=== PATIENT | female | born 1990 | race African-American/Black ===

== ENCOUNTER 2016-09-15 10:37 | Emergency (ER) | payer MEDICAID ==
[~2016-09-15] VITALS: Ht 157.5 cm; Wt 61.2 kg
--- NOTE | 2016-09-15 10:55 | NUR ---
PT IS IN ROOM #2A. DR DAY EVALUATED THE PT.
--- NOTE | 2016-09-15 11:13 | NUR ---
I&D PROCEDURE WAS DONE BY DR DAY. PT TOLERATED TO PROCEDURE WITHOUT COMPLICATIONS. NO BLEEDING. PT WAS D/C TO [facility]. D/C INSTRUCTIONS GIVEN TO THE PT.
[2016-09-15 11:15] VITALS: BP 131/72
== END 2016-09-15 11:17 | disposition home or self-care (01) ==
LOC: ER 10:37
DX: L02.413 Cutaneous abscess of right upper limb (principal)
CPT/HCPCS: A4663

== ENCOUNTER 2016-09-16 06:55 | Emergency (ER) | payer MEDICAID ==
[~2016-09-16] VITALS: Ht 157.5 cm; Wt 56.7 kg
[2016-09-16] MEDS: KETOROLAC TROMETHAMINE 60 MG INJ IM ONE (07:14)
--- NOTE | 2016-09-16 07:19 | NUR ---
dressing on RT axilla changed per pt request. no s/s infection noted at the site of earlier I&D.
[2016-09-16] MEDS ORDERED: KETOROLAC TROMETHAMINE 60 MG INJ IM ONE (07:23)
--- NOTE | 2016-09-16 07:37 | NUR ---
Patient discharged to home in stable conditon. Written and verbal after care instructions given. Patient verbalizes understanding of instructions. Patient left with stable gait with family.
[2016-09-16 07:38] VITALS: BP 126/88
== END 2016-09-16 07:39 | disposition home or self-care (01) ==
LOC: ER 06:58
DX: Z48.01 Encounter for change or removal of surgical wound dressing (principal); L02.411 Cutaneous abscess of right axilla
CPT/HCPCS: A4663; J1885

== ENCOUNTER 2016-10-13 23:21 | Emergency (ER) | payer MEDICAID ==
[~2016-10-13] VITALS: Ht 157.5 cm; Wt 61.2 kg
--- NOTE | 2016-10-14 00:29 | NUR ---
Patient discharged to home in stable conditon. Written and verbal after care instructions given. Patient verbalizes understanding of instructions.
== END 2016-10-14 00:31 | disposition home or self-care (01) ==
LOC: ER 23:26
DX: S13.4XXA Sprain of ligaments of cervical spine, initial encounter (principal); R51 Headache; V89.2XXA Person injured in unspecified motor-vehicle accident, traffic, initial encounter; Y93.89 Activity, other specified; Y99.8 Other external cause status; Y92.89 Other specified places as the place of occurrence of the external cause
CPT/HCPCS: A4663

== ENCOUNTER 2016-12-29 00:16 | Emergency (ER) | payer BC, MEDICAID ==
[~2016-12-29] VITALS: Ht 157.5 cm; Wt 61.7 kg
[2016-12-29 00:42] LABS: *BILIRUBIN,URIN NEGATIVE (NEGATIVE); *BLOOD, URINE Trace-intact (NEGATIVE); *CLARITY,URINE CLOUDY (CLEAR); *COLOR,URINE YELLOW (YELLOW); *KETONES,URINE TRACE (NEGATIVE); *PROTEIN,URINE 1+ (NEGATIVE); LEUKOCYTE ESTERASE ,URINE 1+ (NEGATIVE); NITRITE, URINE NEGATIVE (NEGATIVE); UGLUCOSE NEGATIVE (NEGATIVE)
--- NOTE | 2016-12-29 00:44 | NUR ---
Pt is received alert, responsive came in c/o lower back pain and pain upon urination. Her care continue with MD at bedside.
[2016-12-29 00:45] LABS: *URINE HCG, QUAL NEGATIVE (NEGATIVE)
[2016-12-29] MEDS ORDERED: OXYCODONE/APAP 5-325 MG TABLET PO ONE (00:45)
[2016-12-29] MEDS ORDERED: CYCLOBENZAPRINE HCL 10 MG TABLET PO ONE (00:45)
[2016-12-29 00:49] LABS: BACTERIA,URINE FEW /HPF (NONE SEEN); SQUAMOUS EPITHELIAL CELL,UR MODERATE /HPF (NONE SEEN); WBC,URINE 50-80 /HPF (0-3)
--- NOTE | 2016-12-29 00:55 | NUR ---
Pt is resting in bed with Percocet 5mg -325mg po, Flexeril 10mg po given as ordered. Her care continue as awaits Labs results.
[2016-12-29] MEDS ORDERED: OXYCODONE/APAP 5-325 MG TABLET ONE (01:05)
[2016-12-29] MEDS ORDERED: CYCLOBENZAPRINE HCL 10 MG TABLET ONE (01:05)
[2016-12-29] MEDS ORDERED: NITROFURANTOIN/NITROFURAN MAC 100 MG CAPSULE PO ONE (01:30)
[2016-12-29 01:36] VITALS: BP 119/85
[2016-12-29] MEDS ORDERED: NITROFURANTOIN/NITROFURAN MAC 100 MG CAPSULE ONE (01:42)
--- NOTE | 2016-12-29 01:42 | NUR ---
Pt is been discharge to home after Macrobid 100mg po was given and discharge instructions with perscriptions is given for Macrobid 100mg po [id number], [place] 10mg-325mg po, Flexeril 10mg po and also to follow with PCP.
== END 2016-12-29 01:45 | disposition home or self-care (01) ==
LOC: ER 00:21
DX: N30.90 Cystitis, unspecified without hematuria (principal); M54.5 Low back pain
CPT/HCPCS: 84703; A4663

== ENCOUNTER 2017-05-20 00:04 | Emergency (ER) | payer BC, MEDICAID ==
[~2017-05-20] VITALS: Ht 157.5 cm; Wt 65.8 kg
[2017-05-20] MEDS ORDERED: predniSONE 50 MG TABLET PO ONE (01:45)
[2017-05-20] MEDS ORDERED: predniSONE 50 MG TABLET ONE (01:58)
--- NOTE | 2017-05-20 02:11 | NUR ---
Patient discharged to home in stable conditon. Written and verbal after care instructions given. Patient verbalizes understanding of instructions.
== END 2017-05-20 02:18 | disposition home or self-care (01) ==
LOC: ER 00:08
DX: J40 Bronchitis, not specified as acute or chronic (principal)
CPT/HCPCS: A4663; J7512

== ENCOUNTER 2017-06-16 12:46 | Emergency (ER) | payer BC, MEDICAID ==
[~2017-06-16] VITALS: Ht 157.5 cm; Wt 68.0 kg
--- NOTE | 2017-06-16 13:15 | NUR ---
ALLAN RAMIREZ at the bedside for MSE.
--- NOTE | 2017-06-16 13:34 | NUR ---
Charles wrap applied to abd per MD order.
[2017-06-16 13:37] VITALS: BP 123/76
--- NOTE | 2017-06-16 13:39 | NUR ---
Patient discharged to home in stable conditon. Written and verbal after care instructions given. Patient verbalizes understanding of instructions.
== END 2017-06-16 13:42 | disposition home or self-care (01) ==
LOC: ER 12:46
DX: Z48.01 Encounter for change or removal of surgical wound dressing (principal)
CPT/HCPCS: A4663

== ENCOUNTER → 2017-06-21 | Emergency (ER) | payer BC, MEDICAID ==
[~2017-06-21] MED LIST: ANTIBIOTICS; STOOL SOFTENER
== END | disposition home or self-care (01) ==
LOC: ER 17:42
DX: Z53.21 Procedure and treatment not carried out due to patient leaving prior to being seen by health care provider (principal)

== ENCOUNTER 2017-06-22 15:36 | Emergency (ER) | payer BC, MEDICAID ==
[~2017-06-22] VITALS: Ht 157.5 cm; Wt 70.3 kg
[2017-06-22] MEDS ORDERED: ANTIBIOTICS (15:50)
[2017-06-22] MEDS ORDERED: STOOL SOFTENER (15:50)
--- NOTE | 2017-06-22 16:00 | NUR ---
assissted removing the sutures.
--- NOTE | 2017-06-22 16:15 | NUR ---
Patient discharged to home in stable conditon. Written and verbal after care instructions given. Patient verbalizes understanding of instructions.pt walks in steady gait
== END 2017-06-22 16:17 | disposition home or self-care (01) ==
LOC: ER 15:37
DX: Z48.02 Encounter for removal of sutures (principal); Z79.899 Other long term (current) drug therapy
CPT/HCPCS: A4663

== ENCOUNTER 2017-09-21 21:23 | Emergency (ER) | payer BC, MEDICAID ==
[~2017-09-21] VITALS: Ht 157.5 cm; Wt 61.2 kg
[2017-09-21 22:00] LABS: *BILIRUBIN,URIN NEGATIVE (NEGATIVE); *BLOOD, URINE 3+ (NEGATIVE); *CLARITY,URINE SLIGHTLY CLOUDY (CLEAR); *COLOR,URINE YELLOW (YELLOW); *KETONES,URINE NEGATIVE (NEGATIVE); LEUKOCYTE ESTERASE ,URINE 1+ (NEGATIVE); NITRITE, URINE NEGATIVE (NEGATIVE); PH,URINE 7.5 (5.0-8.0); UGLUCOSE NEGATIVE (NEGATIVE)
[2017-09-21 22:01] LABS: *PROTEIN,URINE 3+ (NEGATIVE); *URINE HCG, QUAL NEGATIVE (NEGATIVE)
[2017-09-21 22:04] LABS: BACTERIA,URINE FEW /HPF (NONE SEEN); RBC,URINE 20-50 /HPF (0-3); SQUAMOUS EPITHELIAL CELL,UR FEW /HPF (NONE SEEN); WBC,URINE 50-80 /HPF (0-3)
[2017-09-21] MEDS ORDERED: IBUPROFEN 600 MG TABLET ONE (22:14)
[2017-09-21] MEDS ORDERED: PHENAZOPYRIDINE HCL 100 MG TABLET ONE (22:14)
[2017-09-21] MEDS ORDERED: IBUPROFEN 600 MG TABLET PO ONE (22:15)
[2017-09-21] MEDS ORDERED: PHENAZOPYRIDINE HCL 100 MG TABLET PO ONE (22:15)
[2017-09-21] MEDS ORDERED: CEPHALEXIN MONOHYDRATE 500 MG CAPSULE PO ONE (22:15)
--- NOTE | 2017-09-21 22:16 | NUR ---
Patient discharged to home in stable conditon. Written and verbal after care instructions given. Patient verbalizes understanding of instructions. Pt ambulated out of ER in steady gait. All belongings with pt. VSS. No acute distres noted.
[2017-09-21 22:17] VITALS: BP 117/77
[2017-09-21] MEDS ORDERED: CEPHALEXIN MONOHYDRATE 500 MG CAPSULE ONE (22:17)
== END 2017-09-21 22:17 | disposition home or self-care (01) ==
LOC: ER 21:23
DX: N39.0 Urinary tract infection, site not specified (principal); Z79.1 Long term (current) use of non-steroidal anti-inflammatories (NSAID); Z79.899 Other long term (current) drug therapy
CPT/HCPCS: 81001; 84703; 87086; 99284; A4663

== ENCOUNTER 2017-12-23 22:55 | Emergency (ER) | payer MEDICAID ==
[~2017-12-23] VITALS: Ht 157.5 cm; Wt 65.8 kg
[2017-12-23] MEDS ORDERED: AMOXICILLIN TRIHYDRATE 250 MG CAPSULE ONE (23:26)
[2017-12-23] MEDS ORDERED: HYDROCODONE/APAP 5-325MG TABLET ONE (23:26)
[2017-12-23] MEDS ORDERED: HYDROCODONE/APAP 5-325MG TABLET PO ONE (23:30)
[2017-12-23] MEDS ORDERED: AMOXICILLIN TRIHYDRATE 250 MG CAPSULE PO ONE (23:30)
--- NOTE | 2017-12-23 23:33 | NUR ---
Patient discharged to home in stable conditon. Written and verbal after care instructions given. Patient verbalizes understanding of instructions. Pt ambulated out of ER in steady gait and has somebody to drive her home. All belongings with pt. VSS. NAD noted.
[2017-12-23 23:34] VITALS: BP 116/76
== END 2017-12-23 23:35 | disposition home or self-care (01) ==
LOC: ER 22:57
DX: K08.89 Other specified disorders of teeth and supporting structures (principal); F17.200 Nicotine dependence, unspecified, uncomplicated
CPT/HCPCS: A4663